=== PATIENT | female | born 1965 | race Caucasian/White ===

== ENCOUNTER → 2023-06-02 12:17 | Outpatient (REF) | payer MEDICARE, OTHER, SELFPAY | LOC: HWCARD 12:17 | PROVIDERS: ATTENDING PHYSICIAN Registered Nurse; FAMILY PHYSICIAN Family Medicine | DX: R94.31 Abnormal electrocardiogram [ECG] [EKG] (principal); Z79.899 Other long term (current) drug therapy | CPT/HCPCS: 93005 ==

== ENCOUNTER 2024-03-22 15:52 | Emergency (ER) | payer MEDICARE, OTHER, SELFPAY ==
[2024-03-22 15:55] VITALS: BP 141/90
[2024-03-22 16:22] LABS: % Basophils 0.7 % (0-2); % Eosinophils 5.5 % (0-6); % Immature Granulocytes 0.2 % (0-0.5); % Lymphocytes 22.3 % (20.5-51.1); % Monocytes 5.8 % (1.7-9.3); % Neutrophils 65.5 % (42.2-75.2); Absolute Basophils 0.1 10^3/uL (0-0.2); Absolute Eosinophils 0.5 10^3/uL (0-0.7); Absolute Monocytes 0.5 10^3/uL (0.1-0.6); Hematocrit 41.8 % (37.0-47.0); Hemoglobin 14.3 g/dL (12.0-16.0); Mean Corp Hgb Conc. 34.2 g/dL (33.0-37.0); Mean Corpuscular Hgb 30.4 pg (27.0-31.0); Mean Corpuscular Volume 88.7 fL (81.0-99.0); Nucleated Red Blood Cells % 0 %; Platelet Count 335 10^3/uL (130-400); Red Blood Cell Count 4.71 10^6/uL (4.20-5.40); Red Cell Dist. Width 12.7 % (11.5-14.5); White Blood Cell Count 9.2 10^3/uL (4.8-10.8)
[2024-03-22 16:34] LABS: ALT (SGPT) 23 U/L (0-35); AST (SGOT) 27 U/L (14-36); Albumin 4.6 g/dl (3.5-5.0); Alkaline Phosphatase 129 U/L (38-126); Blood Urea Nitrogen 16 mg/dl (7-17); Calcium 9.8 mg/dl (8.4-10.2); Carbon Dioxide 28 mmol/L (22-30); Chloride 105 mmol/L (98-107); Glucose 104 mg/dl (70-99); Potassium 4.4 mmol/L (3.5-5.1); Sodium 141 mmol/L (135-145); Total Bilirubin 0.7 mg/dl (0.2-1.3); Total Protein 7.7 g/dl (6.3-8.2); eGFR > 60.00
[2024-03-22 16:46] LABS: Troponin I < 0.012 ng/ml
--- NOTE | 2024-03-22 17:00 | ED.GENMED ---
History of Present Illness
General
Chief Complaint: Dizziness
Source: patient and careers counsellor
Exam Limitations: none
Time Seen by Provider: 03/22/24 16:37
History of Present Illness
History of Present Illness:
58yoF with a history of bipolar disorder, pituitary tumor, orthostatic hypotension on midodrine, and GERD presenting for evaluation of chest pain. Patient had a nuclear stress test this afternoon at [facility] cardiology in [place] around 1:30pm this
afternoon. During the stress test, she started to feel dizzy with chest pain and feeling like her heart was fluttering. She was told that there was nothing remarkable on her stress test but the formal results would be available in 48 hours. She went
to [facility] afterwards to get something to eat when she had a near syncopal episode. She was lowered to the ground but did not lose consciousness. Patient continues to have chest discomfort but is currently feeling better. She has not eaten or drank
anything today. Patient has been having intermittent chest pains for some time which was the reason for the stress test. She states her usual chest pains are attributed to esophagitis and her hiatal hernia.
Past History
Past History
ED Past Medical History: GERD, Seizures and Psychiatric (Self-mutilation, suicide attempts, Depression)
ED Past Surgical History: Appendectomy
Social History
Tobacco: Non-smoker
Alcohol: None
Drug: None
Personal: Single
Living: other (retirement)
Employment: Not employed
Family History
Family History: Other (Noncontributory)
Phy Exam
General Physical Exam
General Presentation: well appearing and no apparent distress
General age: appears stated age
General Skin: warm and dry
General Habitus: normal
General Mental: alert
ENT Exam
ENT Exam: normocephalic
Cardiovascular Exam
Cardiovascular Exam: regular rate/rhythm and no murmur
Pulmonary Exam
Pulmonary Exam: lungs clear, no respiratory distress, no rales, no crackles and no rhonchi
Neurological Exam
Neurological Exam: alert
Brock Coma Scale
Eye Opening: Spontaneous
Verbal Response: Oriented
Motor Response: Obeys Commands
GCS Total Score: 15
Skin Exam
Skin Exam: normal color and warm/dry
Psychiatric Exam
Psychiatric Exam: normal mood/affect
Course
Orders/Labs/Results
Orders:
Orders
03/22/24 15:53
ECG [Electrocardiogram (*1)] Urgent
Reason for Study: Vertigo / Dizzy
03/22/24 15:54
EKG- Treatment ONCE
03/22/24 16:13
Complete Blood Count/With Diff Urgent
Comprehensive Metabolic Panel Urgent
Troponin I Urgent
03/22/24 16:57
Cardiac Monitoring- Treatment ONCE
EKG- Treatment ONCE
0.9% Sodium Chloride 500 ml [Nss] 500 ml IV BOLUS
03/22/24 17:00
Midodrine [ProAmatine] 10 mg PO NOW STA
03/22/24 18:13
Ondansetron Injectable [Zofran] 4 mg IV NOW STA
03/22/24 19:10
Electrocardiogram (*1) Urgent
Reason for Study: Chest Pain
03/22/24 19:46
Troponin I Urgent
Abnormal Lab Results
03/22/24
16:13
Glucose 104 H mg/dl
(70-99)
Alkaline Phosphatase 129 H U/L
(38-126)
03/22/24 16:13
03/22/24 16:13
Vital Signs
Initial and Last Documented VS:
Initial Vital Signs
Temp Pulse Resp BP Pulse Ox
97.9 F 90 16 141/90 100
03/22/24 15:55 03/22/24 15:55 03/22/24 15:55 03/22/24 15:55 03/22/24 15:55
Last Documented Vital Signs
Temp Pulse Resp BP Pulse Ox
97.9 F 80 20 140/68 98
03/22/24 15:55 03/22/24 20:08 03/22/24 20:08 03/22/24 20:08 03/22/24 20:08
MDM/Problems Addressed
Differential Diagnosis Includes:
58yoF here with chest pain and dizziness. 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 Symptoms started during a stress test this afternoon which was reportedly unremarkable. Hx of orthostatic hypotension on midodrine. Currently feeling better. VSS. She is well
appearing in no distress. Exam reassuring. Differential diagnosis includes but is not limited to: ACS, arrhythmia, esophagitis, anxiety
Initial ED plan: Cardiac labs and EKG obtained in triage. EKG shows NSR without ischemic changes and troponin WNL. Will observe and check delta troponin/EKG.
*EKG
Interpreted by ED Provider?: Yes
EKG Intrepretation Date: 03/22/24
Heart Rate: 85
Rate: normal
Rhythm: sinus
[place]: normal axis
Interval: normal interval
QRS Pattern: normal QRS
Ischemia: no ischemia
*Critical Care Note
Total Time (30-74mins, 75-104mins- exclusive of procedures): Not Applicable
Update Note
Update Note:
Repeat EKG and troponin obtained at 3 hours unchanged. On reassessment, chest pain has completely resolved. No indication for hospitalization. She was advised to f/u with her it operations manager tomorrow. ED return precautions discussed. Patient in
agreement with plan and eager to go home. She was discharged in stable condition.
ED Attending Note
-
Portions of this chart may have been created with voice recognition software.� Occasional wrong word or��sound alike� substitutions may have occurred due to the inherent limitations of voice recognition software.
Discharge Plan
Departure
Patient Disposition: Home (Routine Discharge)
Date of Disposition: 03/22/24
Time of Disposition: 20:24
Patient with high blood pressure during this ER visit?: Yes
Discharge Problem:
Chest pain
Instructions: Chest pain - Discharge instructions
Prescriptions:
No Action
lamotrigine [Lamictal] 150 MG tablet
150 mg PO BID
hydroxyzine pamoate [Vistaril] 50 MG capsule
50 mg PO Q6HPRN PRN (Reason: anxiety)
hydroxyzine pamoate [Vistaril] 50 MG capsule
50 mg PO HS
doxepin 100 MG capsule
300 mg PO HS
ranitidine HCl [Zantac] 150 MG tablet
150 mg PO BID
cabergoline 0.5 MG tablet
0.5 mg PO Q48H
haloperidol 10 MG tablet
20 mg PO HS
docusate sodium 100 MG capsule
100 mg PO BID
lorazepam 1 MG tablet
1 mg PO HS
lorazepam 1 MG tablet
1 mg PO Q8HPRN PRN (Reason: anxiety)
prazosin 2 MG capsule
2 mg PO HS
chlorpromazine 50 MG tablet
50 mg PO QID
bupropion HCl 300 MG tablet extended release 24 hr
300 mg PO DAILY
quetiapine [Seroquel] 400 MG tablet
400 mg PO BID
ibuprofen 600 MG tablet
600 mg PO Q6HPRN PRN (Reason: pain) Qty: 20 0RF
Referrals:
Rosanna Su DO [Family Provider] -
Activity Restrictions/Additional Instructions:
Please call your it operations manager tomorrow to schedule a follow-up appointment and discuss your symptoms. Return to the ER with any new or worsening symptoms.
Interventions
Interventions:
*Risk Screen - Suicide Last Done: 03/22/24 15:55
*General Assessment Last Done: 03/22/24 15:55
ED- Fall Risk Assessment Last Done: 03/22/24 16:39
*ED COVID-19 Vaccine History Last Done: 03/22/24 15:55
*Nursing Disposition Last Done: 03/22/24 20:54
ED- Neurological Assessment Last Done: 03/22/24 16:39
ED- Cardiac Assessment Last Done: 03/22/24 16:39
Discharge Date and Time
Print Language: KISWAHILI
[2024-03-22] MEDS: ProAmatine 10 MG PO (17:14)
[2024-03-22] MEDS: NSS 500 IV (17:15)
[2024-03-22 17:47] VITALS: BP 142/77
[2024-03-22] MEDS: ZOFRAN 4 MG IV (18:18)
[2024-03-22 20:08] VITALS: BP 140/68
[2024-03-22 20:20] LABS: Troponin I < 0.012 ng/ml
== END 2024-03-22 21:29 | disposition home or self-care (01) ==
LOC: EMR 15:52
PROVIDERS: Student in an Organized Health Care Education/Training Program; EMERGENCY PHYSICIAN Emergency Medicine; FAMILY PHYSICIAN Family Medicine
DX: R07.89 Other chest pain (principal); R55 Syncope and collapse; K21.00 Gastro-esophageal reflux disease with esophagitis, without bleeding; Z90.49 Acquired absence of other specified parts of digestive tract
CPT/HCPCS: 96374; 96361; 99284; 80053; 84484; 85025; 93005

== ENCOUNTER 2024-07-12 23:08 | Emergency (ER) | payer MEDICARE, OTHER, SELFPAY ==
[2024-07-12 23:13] VITALS: BP 121/79
[2024-07-12 23:16] VITALS: BP 121/79
[2024-07-12 23:17] VITALS: BMI 35.4
[2024-07-12 23:38] LABS: % Basophils 0.9 % (0-2); % Eosinophils 3.7 % (0-6); % Immature Granulocytes 0.5 % (0-0.5); % Lymphocytes 27.6 % (20.5-51.1); % Monocytes 7.5 % (1.7-9.3); % Neutrophils 59.8 % (42.2-75.2); Absolute Basophils 0.1 10^3/uL (0-0.2); Absolute Eosinophils 0.3 10^3/uL (0-0.7); Absolute Lymphocytes 2.1 10^3/uL (1.2-3.4); Absolute Monocytes 0.6 10^3/uL (0.1-0.6); Absolute Neutrophils 4.6 10^3/uL (1.4-6.5); Hematocrit 36.7 % (37.0-47.0); Hemoglobin 13.3 g/dL (12.0-16.0); Mean Corp Hgb Conc. 36.2 g/dL (33.0-37.0); Mean Corpuscular Hgb 30.6 pg (27.0-31.0); Mean Corpuscular Volume 84.4 fL (81.0-99.0); Nucleated Red Blood Cells % 0 %; Red Blood Cell Count 4.35 10^6/uL (4.20-5.40); Red Cell Dist. Width 12.5 % (11.5-14.5); White Blood Cell Count 7.6 10^3/uL (4.8-10.8)
[2024-07-12 23:46] LABS: ALT (SGPT) 20 U/L (0-35); AST (SGOT) 23 U/L (14-36); Acetaminophen < 10 ug/ml (10-30); Albumin 4.5 g/dl (3.5-5.0); Alkaline Phosphatase 110 U/L (38-126); Blood Urea Nitrogen 14 mg/dl (7-17); Calcium 9.9 mg/dl (8.4-10.2); Carbon Dioxide 23 mmol/L (22-30); Chloride 108 mmol/L (98-107); Estimated Creatinine Clearance 93 ml/min; Glucose 125 mg/dl (70-99); Potassium 3.6 mmol/L (3.5-5.1); Salicylate < 1.0 mg/dl (2.0-20.0); Sodium 138 mmol/L (135-145); Total Bilirubin 0.3 mg/dl (0.2-1.3); Total Protein 7.9 g/dl (6.3-8.2); eGFR > 60.00
[2024-07-12 23:48] LABS: Alcohol None Detected
--- NOTE | 2024-07-12 23:56 | ED.GENMED ---
History of Present Illness
General
Chief Complaint: Overdose Unintentional
Source: patient
Exam Limitations: none
Time Seen by Provider: 07/12/24 23:50
History of Present Illness
History of Present Illness:
See MDM
Past History
Past History
ED Past Medical History: GERD, Seizures and Psychiatric (Self-mutilation, suicide attempts, Depression)
ED Past Surgical History: Appendectomy
Social History
Tobacco: Non-smoker
Alcohol: None
Drug: None
Personal: Single
Living: other (intermediate)
Employment: Not employed
Family History
Family History: Other (Noncontributory)
Phy Exam
Physical Exam
Physical Exam:
See MDM
Course
Orders/Labs/Results
Orders:
Orders
07/12/24 23:12
Electrocardiogram (*1) Urgent
Reason for Study: Other
Other Reason for Exam: Potential overdose
Cardiac Monitoring- Treatment ONCE
Pulse Ox/spot Check [RESP] Urgent
Quantity: 1
07/12/24 23:13
EKG- Treatment ONCE
07/12/24 23:20
Acetaminophen Urgent
Alcohol Urgent
Complete Blood Count/With Diff Urgent
Comprehensive Metabolic Panel Urgent
Salicylate Urgent
07/12/24 23:56
Ondansetron Injectable [Zofran] 4 mg IV NOW STA
07/13/24 01:45
Electrocardiogram (*1) Urgent
Reason for Study: QTc Monitoring
EKG- Treatment ONCE
Abnormal Lab Results
07/12/24
23:20
Hct 36.7 L %
(37.0-47.0)
Chloride 108 H mmol/L
(98-107)
Glucose 125 H mg/dl
(70-99)
Salicylates < 1.0 L mg/dl
(2.0-20.0)
Acetaminophen < 10 L ug/ml
(10-30)
07/12/24 23:20
07/12/24 23:20
Vital Signs
Initial and Last Documented VS:
Initial Vital Signs
Pulse Resp
86 13
07/12/24 23:12 07/12/24 23:12
Last Documented Vital Signs
Temp Pulse Resp BP Pulse Ox
98.3 F 87 22 135/78 98
07/12/24 23:13 07/13/24 01:45 07/13/24 01:45 07/13/24 00:00 07/13/24 01:45
MDM/Problems Addressed
Differential Diagnosis Includes:
HPI and MDM Narrative:
58-year-old female presenting for evaluation of unintentional overdose. Patient took extra dose of melatonin, clonazepam, Lamictal, doxepin, Haldol, Seroquel, Protonix, sodium chloride and Seroquel. At 8:45 PM, patient took her normal amount of
medications. Around 9:15 PM, she could not remember if she took them or not. Her medicine is given in a blister pack. She is currently residing at [facility]. Caretakers at bedside. She took an extra blister pack of medications. Soon
after, she realized that she doubled her medication. Out of fear, she started to self-induced vomiting. However, it did not work and patient is now nauseous. Blood work and EKG done prior to my assessment. Intervals within normal limits and her
EKG. Patient is mildly anxious but in no acute distress. Will continue to monitor for few more hours and repeat. Patient denies purposeful self injury
Physical exam
General: Well appearing and non-toxic
HEENT: protecting airway
Neck: appears supple
CV: No evidence of cyanosis. Regular rate and rhythm
Resp: No accessory muscle use
Abd: Non-distended and nontender
Extremities: No deformities
Neuro: alert
Psych: Anxious
Skin: Intact
Problems Addressed including Acute and Chronic Conditions affecting care:
1. Accidental drug overdose
Acuity: acute
Prognosis: stable
Details: Will continue to monitor for few hours.
Updates
1:50 AM repeat EKG unchanged and patient remains well-appearing nontoxic.
Testing considered: UDS
Drug therapy (if applicable): OTC meds, please see d/c instruction regarding Rx drugs
Amount and/or Complexity of Data Reviewed
Clinical info obtained from: Patient
External data reviewed: N/A
Labs I independently reviewed (but not limited to): White blood cell count normal, white blood cell count normal, sodium
Radiology: N/A
Pulse Ox: not hypoxic
EKG independently reviewed: N/A
Instructor Adjunct Pharmacy Technician: N/A
Critical Care: N/A
Risk of Complication:
Social Determinants of health: Good social support
Discussed with other providers: N/A
Escalation of Care includes Admit/Obs: After being observed in the Emergency Department, pt stable for discharge.
Occasional wrong word or 'sound a like' substitutions may have occurred due to the inherent limitations of voice recognition software. Read the chart carefully and recognize, using context, where substitutions have occurred.
*Critical Care Note
Total Time (30-74mins, 75-104mins- exclusive of procedures): Not Applicable
ED Attending Note
-
Portions of this chart may have been created with voice recognition software.� Occasional wrong word or��sound alike� substitutions may have occurred due to the inherent limitations of voice recognition software.
Discharge Plan
Departure
Patient Disposition: Home (Routine Discharge)
Date of Disposition: 07/13/24
Time of Disposition: 01:53
Patient with high blood pressure during this ER visit?: No
Discharge Problem:
Accidental overdose
Instructions: Accidental Overdose (DC)
Prescriptions:
No Action
lamotrigine [Lamictal] 150 MG tablet
150 mg PO BID
hydroxyzine pamoate [Vistaril] 50 MG capsule
50 mg PO Q6HPRN PRN (Reason: anxiety)
hydroxyzine pamoate [Vistaril] 50 MG capsule
50 mg PO HS
doxepin 100 MG capsule
300 mg PO HS
ranitidine HCl [Zantac] 150 MG tablet
150 mg PO BID
cabergoline 0.5 MG tablet
0.5 mg PO Q48H
haloperidol 10 MG tablet
20 mg PO HS
docusate sodium 100 MG capsule
100 mg PO BID
lorazepam 1 MG tablet
1 mg PO HS
lorazepam 1 MG tablet
1 mg PO Q8HPRN PRN (Reason: anxiety)
prazosin 2 MG capsule
2 mg PO HS
chlorpromazine 50 MG tablet
50 mg PO QID
bupropion HCl 300 MG tablet extended release 24 hr
300 mg PO DAILY
quetiapine [Seroquel] 400 MG tablet
400 mg PO BID
ibuprofen 600 MG tablet
600 mg PO Q6HPRN PRN (Reason: pain) Qty: 20 0RF
Referrals:
Miguelito Ray CRNP [Family Provider, Family Practice]
Activity Restrictions/Additional Instructions:
Please return for any worsening symptoms.
You may return at any time if you have further concerns.
Please follow up with your doctor at the first available appointment, preferably this week.
Thank you for choosing [facility].
Interventions
Interventions:
*Risk Screen - Suicide Last Done: 07/12/24 23:18
*General Assessment Last Done: 07/12/24 23:18
*Neglect/Abuse Screening Last Done: 07/12/24 23:18
*ED- Fall Risk Assessment Last Done: 07/12/24 23:18
*ED COVID-19 Vaccine History Last Done: 07/12/24 23:18
ED- Cardiac Assessment Last Done: 07/12/24 23:30
ED- Neurological Assessment Last Done: 07/12/24 23:30
ED-Psychological Assessment Last Done: 07/12/24 23:30
ED- Pulmonary Assessment Last Done: 07/12/24 23:30
Discharge Date and Time
Print Language: [id number]
[2024-07-12] MEDS: ZOFRAN 4 MG IV (23:58)
[2024-07-13] VITALS: BP 135/78
[2024-07-13 00:17] LABS: Mean Platelet Volume 9.2 fL (7.4-10.4)
[2024-07-13 00:18] LABS: Platelet Count 316 10^3/uL (130-400)
[2024-07-13 01:55] VITALS: BP 129/81
== END 2024-07-13 02:03 | disposition home or self-care (01) ==
LOC: EMR 23:08
PROVIDERS: Emergency Medicine; EMERGENCY PHYSICIAN Student in an Organized Health Care Education/Training Program; FAMILY PHYSICIAN Registered Nurse
DX: T50.991A Poisoning by other drugs, medicaments and biological substances, accidental (unintentional), initial encounter (principal); R11.0 Nausea; Z90.49 Acquired absence of other specified parts of digestive tract; F32.A Depression, unspecified; Z91.51 Personal history of suicidal behavior
CPT/HCPCS: 96374; 99284; 80053; 80143; 80179; 82077; 85025; 93005

== ENCOUNTER 2024-10-31 14:14 | Emergency (ER) | payer MEDICARE, OTHER, SELFPAY ==
[2024-10-31 14:16] VITALS: BP 124/85; BMI 32.6
[2024-10-31 14:17] VITALS: BP 124/85
--- NOTE | 2024-10-31 14:27 | ED.GENMED ---
History of Present Illness
General
Chief Complaint: Overdose Unintentional
Time Seen by Provider: 10/31/24 14:20
History of Present Illness
History of Present Illness:
58-year-old female with history of bipolar disorder and depression presents to the emergency department for evaluation after accidental ingestion of her morning, afternoon, and evening medications all at the same time. Morning medications include
100 mg lamotrigine, 5 mg haloperidol, 40 mg pantoprazole, 100 mg docusate, 1 g sodium chloride, 10 mg midodrine, and 0.5 mg clonazepam, the evening medications include the aforementioned medications with the addition of doxepin 25 mg, haloperidol 10
mg, Dayvigo 5 mg and quetiapine 500 mg. She also notes that clonazepam her afternoon list. Medications from the blister packaging she was confused about when she taken this prompting her to take all of them at the same time. She denies suicidal
intent with this. She feels dizzy and unwell close in the ER. Ingestion was approximately 8 AM
Past History
Past History
ED Past Medical History: GERD, Seizures and Psychiatric (Self-mutilation, suicide attempts, Depression)
ED Past Surgical History: Appendectomy
Social History
Tobacco: Non-smoker
Alcohol: None
Drug: None
Personal: Single
Living: other (prison)
Employment: Not employed
Family History
Family History: Other (Noncontributory)
Review of Systems
Review of Systems
Allergies reviewed?: Yes
All Other Systems: ROS reviewed and negative except as documented in HPI and ROS
Phy Exam
Physical Exam
Physical Exam:
GEN: Well appearing, NAD, WDWN
HEENT: Oral mucosa moist, no scleral icterus
Cardiac: Regular rate and rhythm, no murmur
Lung: No respiratory distress, no tachypnea, lungs clear to auscultation
MSK: No gross deformity or injuries
Skin: Good color, no pallor or jaundice, no rashes
Neuro: AO x3, moves all extremities freely
Psych: Calm, cooperative
Course
Orders/Labs/Results
Orders:
Orders
10/31/24 14:18
EKG [Electrocardiogram (*1)] Urgent
Reason for Study: Vertigo / Dizzy
10/31/24 14:21
EKG- Treatment ONCE
10/31/24 14:25
Complete Blood Count/With Diff Urgent
Comprehensive Metabolic Panel Urgent
10/31/24 14:43
Ondansetron Injectable [Zofran] 4 mg IV NOW STA
10/31/24 14:44
Ondansetron Injectable [Zofran] 4 mg .ROUTE .STK-MED ONE
10/31/24 14:25
10/31/24 14:25
Vital Signs
Initial and Last Documented VS:
Initial Vital Signs
Temp Pulse Resp BP Pulse Ox
98.4 F 69 20 124/85 97
10/31/24 14:16 10/31/24 14:16 10/31/24 14:16 10/31/24 14:16 10/31/24 14:16
Last Documented Vital Signs
Temp Pulse Resp BP Pulse Ox
98.4 F 76 21 130/82 98
10/31/24 14:16 10/31/24 18:00 10/31/24 18:00 10/31/24 17:00 10/31/24 18:00
MDM/Problems Addressed
MDM/Problems Addressed:
Patient was observed in the ED for several hours, the ingestion time of these medications was greater than 6 hours prior to presentation. She did not exhibit any hypotension or profound somnolence. She is suitable for discharge to home, I have
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
*Pulse Oximetry
SaO2: 97
Oxygen Mode of Delivery: Room air
Patient hypoxic: no
*Critical Care Note
Total Time (30-74mins, 75-104mins- exclusive of procedures): Not Applicable
Update Note
Update Note:
Called to the room by RN as patient was on the ground, she states she got up to use the restroom and felt dizzy and fell to the ground. She denies head strike and denies any injuries or pain as result of her fall. Her IV was accidentally removed
as a result of this. No active bleeding noted. Patient assessed, she is at her baseline orientation with no external signs of trauma. Will continue to monitor
ED Attending Note
-
Portions of this chart may have been created with voice recognition software.� Occasional wrong word or��sound alike� substitutions may have occurred due to the inherent limitations of voice recognition software.
Discharge Plan
Departure
Patient Disposition: Home (Routine Discharge)
Date of Disposition: 10/31/24
Time of Disposition: 17:25
Patient with high blood pressure during this ER visit?: No
Discharge Problem:
Accidental overdose
Prescriptions:
No Action
lamotrigine [Lamictal] 150 MG tablet
150 mg PO BID
hydroxyzine pamoate [Vistaril] 50 MG capsule
50 mg PO Q6HPRN PRN (Reason: anxiety)
hydroxyzine pamoate [Vistaril] 50 MG capsule
50 mg PO HS
doxepin 100 MG capsule
300 mg PO HS
ranitidine HCl [Zantac] 150 MG tablet
150 mg PO BID
cabergoline 0.5 MG tablet
0.5 mg PO Q48H
haloperidol 10 MG tablet
20 mg PO HS
docusate sodium 100 MG capsule
100 mg PO BID
lorazepam 1 MG tablet
1 mg PO HS
lorazepam 1 MG tablet
1 mg PO Q8HPRN PRN (Reason: anxiety)
prazosin 2 MG capsule
2 mg PO HS
chlorpromazine 50 MG tablet
50 mg PO QID
bupropion HCl 300 MG tablet extended release 24 hr
300 mg PO DAILY
quetiapine [Seroquel] 400 MG tablet
400 mg PO BID
ibuprofen 600 MG tablet
600 mg PO Q6HPRN PRN (Reason: pain) Qty: 20 0RF
Referrals:
Rosanna Su DO [Family Provider, Family Practice]
Activity Restrictions/Additional Instructions:
Peggy may resume her clonazepam, midodrine, and melatonin tonight
All other medications should be resumed tomorrow morning
Interventions
Interventions:
*Risk Screen - Suicide Last Done: 10/31/24 14:16
*General Assessment Last Done: 10/31/24 14:16
*Neglect/Abuse Screening Last Done: 10/31/24 14:16
*ED- Fall Risk Assessment Last Done: 10/31/24 18:09
*ED COVID-19 Vaccine History Last Done: 10/31/24 14:16
*Nursing Disposition Last Done: 10/31/24 18:09
ED- Cardiac Assessment Last Done: 10/31/24 15:04
ED- Neurological Assessment Last Done: 10/31/24 15:04
ED-Psychological Assessment Last Done: 10/31/24 15:04
ED- Pulmonary Assessment Last Done: 10/31/24 15:04
Discharge Date and Time
Discharge Date/Time: 10/31/24 18:10
Print Language: [id number]
[2024-10-31 14:32] LABS: Hematocrit 37.7 % (37.0-47.0); Hemoglobin 12.8 g/dL (12.0-16.0); Mean Corp Hgb Conc. 34.0 g/dL (33.0-37.0); Mean Corpuscular Volume 88.7 fL (81.0-99.0); Nucleated Red Blood Cells % 0 %; Platelet Count 286 10^3/uL (130-400); Red Cell Dist. Width 13.2 % (11.5-14.5)
[2024-10-31] MEDS: ZOFRAN 4 MG IV (14:44)
[2024-10-31 14:47] LABS: ALT (SGPT) 17 U/L (0-35); AST (SGOT) 22 U/L (14-36); Albumin 4.5 g/dl (3.5-5.0); Alkaline Phosphatase 92 U/L (38-126); Blood Urea Nitrogen 15 mg/dl (7-17); Calcium 9.8 mg/dl (8.4-10.2); Carbon Dioxide 26 mmol/L (22-30); Chloride 107 mmol/L (98-107); Estimated Creatinine Clearance 80 ml/min; Glucose 93 mg/dl (70-99); Potassium 4.1 mmol/L (3.5-5.1); Sodium 141 mmol/L (135-145); Total Protein 7.7 g/dl (6.3-8.2); eGFR > 60.00
[2024-10-31 15:00] VITALS: BP 135/92
[2024-10-31 16:00] VITALS: BP 125/74
[2024-10-31 17:00] VITALS: BP 130/82
== END 2024-10-31 18:10 | disposition home or self-care (01) ==
LOC: EMR 14:14
PROVIDERS: EMERGENCY PHYSICIAN Emergency Medicine; FAMILY PHYSICIAN Family Medicine
DX: T42.6X1A Poisoning by other antiepileptic and sedative-hypnotic drugs, accidental (unintentional), initial encounter (principal); T43.4X1A Poisoning by butyrophenone and thiothixene neuroleptics, accidental (unintentional), initial encounter; T47.1X1A Poisoning by other antacids and anti-gastric-secretion drugs, accidental (unintentional), initial encounter; T47.4X1A Poisoning by other laxatives, accidental (unintentional), initial encounter; T50.3X1A Poisoning by electrolytic, caloric and water-balance agents, accidental (unintentional), initial encounter; T44.4X1A Poisoning by predominantly alpha-adrenoreceptor agonists, accidental (unintentional), initial encounter; T42.4X1A Poisoning by benzodiazepines, accidental (unintentional), initial encounter; T43.011A Poisoning by tricyclic antidepressants, accidental (unintentional), initial encounter; T43.591A Poisoning by other antipsychotics and neuroleptics, accidental (unintentional), initial encounter; F31.9 Bipolar disorder, unspecified; K21.9 Gastro-esophageal reflux disease without esophagitis; Z91.52 Personal history of nonsuicidal self-harm; Z91.51 Personal history of suicidal behavior
CPT/HCPCS: 99284; 96374; 80053; 85025; 93005